=== PATIENT | male | born 1940 | race Caucasian/White ===

== ENCOUNTER 2018-10-18 14:31 | Emergency (ER) | payer MEDICARE, BC ==
[2018-10-18] MEDS ORDERED: SODIUM CHLORIDE 0.9% 1,000 ML IV ONE ×2 (15:32→15:37)
--- NOTE | 2018-10-18 15:37 | ED Physician Documentation ---
History of Present Illness - Stated complaint Stated Complaint: DEHYDRATED - Chief complaint Chief Complaint: General - History obtained from History obtained from: Patient, Family () - History of Present Illness Timing: Other (This is a 78-year-old gentleman who was diagnosed with prostate cancer in 2001 and opted for a watchful waiting approach without any treatment. Over the last 2 weeks he has had fatigue and malaise and the says he is gone from 3 episodes of nocturia per night to 1. He went to his physician today and labs were drawn. He was noted to be anemic at hemoglobin of 8.6 and have renal failure of unclear chronicity with a BUN of 77, creatinine of 7.3, and a calcium of 12.4. His potassium was only 5.2 and his bicarb was 20.) Review of Systems Ten Systems: 10 systems reviewed and negative Constitutional: denies: Fever, Chills Cardiac: denies: Chest pain / pressure, Palpitations Respiratory: denies: Dyspnea, Cough GI: denies: Abdominal Pain, Nausea, Vomiting PD PAST MEDICAL HISTORY - Allergies Allergies/Adverse Reactions: Allergies Allergy/AdvReac Type Severity Reaction Status Date / Time No Known Drug Allergies Allergy Verified 10/18/18 15:03 PD ED PE NORMAL - Vitals Vital signs reviewed: Yes - General General: Alert and oriented X 3, No acute distress - HEENT HEENT: PERRL, EOMI - Neck Neck: Supple, no meningeal sign, No bony TTP - Cardiac Cardiac: RRR, No murmur - Respiratory Respiratory: No respiratory distress, Clear bilaterally - Abdomen Abdomen: Soft, Non tender - Back Back: No CVA TTP, No spinal TTP - Derm Derm: Normal color, Warm and dry - Extremities Extremities: No edema, No calf tenderness / cord - Neuro Neuro: Alert and oriented X 3 (But slightly confused and slow to answer questions) Eye Opening: Spontaneous Motor: Obeys Commands Verbal: Oriented GCS Score: 15 - Psych Psych: Normal mood, Normal affect Results - Vitals Vitals: Vital Signs - 24 hr 10/18/18 10/18/18 10/18/18 15:00 16:15 16:38 Temperature 36.8 C Heart Rate 64 62 63 Respiratory 18 16 12 Rate Blood Pressure 172/99 H 182/103 H 199/94 H O2 Saturation 100 100 100 10/18/18 17:05 Temperature Heart Rate 65 Respiratory 16 Rate Blood Pressure 185/90 H O2 Saturation 96 Oxygen O2 Source Room air - Labs Labs: Laboratory Tests 10/18/18 10/18/18 10/18/18 15:49 15:49 15:49 WBC 8.9 RBC 2.93 L Hgb 9.4 L Hct 27.0 L MCV 92.3 MCH 32.2 H MCHC 34.8 RDW 13.4 Plt Count 315 MPV 7.3 L Neut # (Auto) 7.0 H Lymph # (Auto) 1.1 L Kinney # (Auto) 0.6 Eos # (Auto) 0.1 Baso # (Auto) 0.1 Absolute Nucleated RBC 0.00 Nucleated RBC % 0.0 VBG pH 7.311 VBG pCO2 43.4 VBG pO2 27.9 VBG HCO3 21.4 L VBG Total CO2 22.7 L VBG O2 Saturation 54.1 L VBG Base Excess -4.6 L Sodium 137 Potassium 5.0 Chloride 102 Carbon Dioxide 21 Anion Gap 14.0 H BUN 93 H* Creatinine 9.1 H* Estimated GFR (MDRD) 6 L Glucose 106 H Calcium 12.7 H* Phosphorus 7.0 H Magnesium 2.9 H Total Bilirubin 0.8 AST 11 ALT 12 Alkaline Phosphatase 59 Total Protein 7.1 Albumin 4.0 Globulin 3.1 Albumin/Globulin Ratio 1.3 Lipase 50 Procedures - General procedure General procedure: He was difficult for Horne placement and the nurse was unable to. I personally placed a 16 [place] coud catheter without significant issues. PD MEDICAL DECISION MAKING - ED course ED course: This is a 78-year-old gentleman with known prostate cancer presents with renal failure with hypercalcemia of unclear chronicity. Besides the labs as stated in the HPI they also did a PSA a few days ago which was 149.5. Case was discussed by phone with our admitting mental health social worker, Dr. Sandoval who felt that he should be transferred to a facility with nephrology backup. Discussed Pamidronate with PharmD Who based on his renal function recommended against it. Spoke with Dr Dia, On-call nephrology at [facility] [place] who will consult and defers to hospitalist for admission. Recommends retroperitoneal ultrasound in the interim. [address] Prov by Dr Gifford at 1645, cobras completed. Departure - Departure Disposition: 02 Transfer Acute Care Hosp Clinical Impression: Hypercalcemia Renal failure Qualifiers: Renal failure chronicity: unspecified chronicity Qualified Code(s): N19 - Unspecified kidney failure Condition: Serious
[2018-10-18 15:58] LABS: VBG BASE EXCESS -4.6 mmol/L (-2 - +2); VBG PCO2 43.4 mmHg (41-51); VBG PH 7.311 (7.31-7.41); VBG PO2 27.9 mmHg (25-47); VBG TOTAL CO2 22.7 mmol/L (24-29)
[2018-10-18 16:01] LABS: BASOPHILS # (AUTO) 0.1 10^3/uL (0.0-0.1); BASOPHILS % (AUTO) 0.8 %; EOSINOPHILS # (AUTO) 0.1 10^3/uL (0.0-0.7); EOSINOPHILS % (AUTO) 1.5 %; HGB - HEMOGLOBIN 9.4 g/dL (14.0-18.0); LYMPHOCYTES # (AUTO) 1.1 10^3/uL (1.5-3.5); LYMPHOCYTES % (AUTO) 12.4 %; MEAN CORPUSCULAR HEMOGLOBIN 32.2 pg (27.0-31.0); MEAN CORPUSCULAR HGB CONC 34.8 g/dL (32.0-36.0); MEAN CORPUSCULAR VOLUME 92.3 fL (80.0-94.0); MEAN PLATELET VOLUME 7.3 fL (7.4-11.4); MONOCYTES # (AUTO) 0.6 10^3/uL (0.0-1.0); MONOCYTES % (AUTO) 6.7 %; NEUTROPHILS % (AUTO) 78.6 %; PLT - PLATELET COUNT 315 10^3/uL (130-450); RED BLOOD COUNT 2.93 10^6/uL (4.70-6.10); RED CELL DISTRIBUTION WIDTH 13.4 % (12.0-15.0); WHITE BLOOD COUNT 8.9 x10^3/uL (4.8-10.8)
[2018-10-18 16:19] LABS: ALBUMIN/GLOBULIN RATIO 1.3 (1.0-2.2); BILIRUBIN,TOTAL 0.8 mg/dL (0.2-1.0); MAGNESIUM 2.9 mg/dL (1.7-2.8); TOTAL PROTEIN 7.1 g/dL (6.7-8.2)
[2018-10-18 16:20] LABS: CALCIUM 12.7 mg/dL (8.5-10.3); CREATININE 9.1 mg/dL (0.6-1.2)
--- NOTE | 2018-10-18 17:55 | Ultrasound Report ---
Reason: renal failure Procedure Date: 10/18/2018 Accession Number: [id number] / [id number] Procedure: US - Retroperitoneal CPT Code: FULL RESULT: EXAM: RENAL ULTRASOUND EXAM DATE: 10/18/2018 05:00 PM. CLINICAL HISTORY: Renal failure. COMPARISON: None. TECHNIQUE: Real-time scanning was performed with static images obtained. FINDINGS: The right kidney measures 11.1 and the left kidney 11.4 cm longitudinally. Both kidneys demonstrate severe hydronephrosis. There is increased parenchymal echotexture. No stones or mass seen. Bilateral ureteral dilatation present. An approximately 8.9 x 5.4 x 7.7 cm lobulated mass along the posterior inferior margins of the urinary bladder. Bladder volume 230 cc. Ureteral jets not seen. IMPRESSION: 1. Severe bilateral hydroureteronephrosis which appears secondary to obstruction caused by bladder versus prostate neoplasm. [facility]
[2018-10-18 18:30] VITALS: BP 190/88
== END 2018-10-18 18:15 | disposition short-term general hospital (02) ==
LOC: ED 14:31
DX: N19 Unspecified kidney failure (principal); N13.30 Unspecified hydronephrosis; E83.52 Hypercalcemia; C61 Malignant neoplasm of prostate
CPT/HCPCS: 36415; 51702; 76770; 80053; 82803; 83690; 83735; 84100; 85025; 96360; 96361; 99284; 99285

== ENCOUNTER 2018-10-18 18:22 | Outpatient (CLI) | payer MEDICARE, BC | END 2018-10-18 18:23 | disposition short-term general hospital (02) | LOC: EMS 18:22 | PROVIDERS: ATTEND Surgery | DX: N19 Unspecified kidney failure (principal) | CPT/HCPCS: A0425; A0426 ==